=== PATIENT | female | born 1970 | race Caucasian/White ===

== ENCOUNTER 2017-10-19 17:05 | Emergency (ER) | payer SELFPAY ==
[~2017-10-19] VITALS: Ht 160 cm; Wt 112.6 kg
[2017-10-19 17:10] VITALS: BP 165/111; Ht 160 cm; Wt 112.6 kg
== END 2017-10-19 19:52 | disposition left against medical advice (07) ==
LOC: ED 17:05
DX: Z53.21 Procedure and treatment not carried out due to patient leaving prior to being seen by health care provider (principal)